=== PATIENT | female | born 1950 | race Caucasian/White ===

== ENCOUNTER 2024-02-05 19:41 | Emergency (ER) | payer MEDICARE, BC, SELFPAY ==
[2024-02-05 19:43] VITALS: BP 171/100
--- NOTE | 2024-02-05 20:27 | ED.GENMED ---
History of Present Illness
General
Chief Complaint: Abdominal Pain
Source: patient and spouse
Exam Limitations: none
Time Seen by Provider: 02/05/24 20:14
Nursing documentation reviewed up to this point in time: agreed with
History of Present Illness
History of Present Illness:
74-year-old female with a past medical history of hypertension, hyperlipidemia who presents to the ER with her for evaluation of abdominal pain. Patient reports onset of symptoms this morning around 10 AM�they started gradually and have
been constant and generally worsening throughout the day. Pain located in the left lower quadrant does not radiate. No clear triggering or relieving factors noted. She denies any associated nausea or vomiting. Denies any diarrhea or
constipation, last bowel movement was today and was normal. Denies any dysuria, hematuria, change in urinary frequency. She denies any fever or chills. She says she has had similar symptoms with diverticulitis in the past.
Review of Systems
Review of Systems
All Other Systems: ROS reviewed and negative except as documented in HPI and ROS
Constitutional: Denies fever or chills
Respiratory: Denies trouble breathing
Cardiac: Denies chest pain
ABD/GI: Reports abdominal pain; Denies nausea, vomiting, diarrhea or constipated
: Denies dysuria, frequency, flank pain or bleeding
Musculoskeletal: Denies neck pain or back pain
Neurological: Denies dizzy or headache
Phy Exam
Physical Exam
Physical Exam:
General: Awake, alert, oriented x3; no acute distress
Head: Normocephalic, atraumatic
Eyes: Conjunctiva normal, sclera intact
Throat: Airway intact, moist mucous membranes
Neck: Trachea midline
Lungs: Clear to auscultation bilaterally, no wheezing, rales, rhonchi
Heart: Regular rate and rhythm, no murmurs, gallops, or rubs
Abd: Soft, non distended, tender to palpation left lower quadrant with no peritoneal signs and no masses appreciated
Back: No CVA tenderness
Neuro: No gross deficits
Extremities: No edema in extremities, warm and well-perfused
Scores
Heart Failure Risk
Heart Failure Risk Score: Not Applicable
Heart Score for Chest Pain Patients
STEMI patient?: Not applicable
Withdrawal Assessment of Alcohol
Withdrawal Assessment Completed?: Not applicable
Course
Orders/Labs/Results
Orders:
Orders
02/05/24 20:17
CT Abd/pelvis W Iv Cont Urgent
Comment:
Reason For Exam: LLQ abd pain
02/05/24 20:28
Complete Blood Count/With Diff Urgent
Comprehensive Metabolic Panel Urgent
02/05/24 20:33
0.9% Sodium Chloride 500 ml [Nss] 500 ml IV BOLUS
02/05/24 21:14
Urinalysis Reflex To Culture Urgent
Date Specimen was Collected: 02/05/24
Time Specimen was Collected: 21:07
Urine Microscopic Reflex Cult Urgent
Abnormal Lab Results
02/05/24 02/05/24
20:28 21:14
WBC 4.4 L 10^3/uL
(4.8-10.8)
RBC 3.28 L 10^6/uL
(4.20-5.40)
Hgb 10.3 L g/dL
(12.0-16.0)
Hct 29.3 L %
(37.0-47.0)
MCH 31.4 H pg
(27.0-31.0)
MPV 10.5 H fL
(7.4-10.4)
Abs Immat Gran (auto) 0.2 H 10^3/uL
(0-0.05)
Immature Gran % 4.1 H %
(0-0.5)
Sodium 131 L mmol/L
(135-145)
Chloride 92 L mmol/L
(98-107)
BUN 27 H mg/dl
(7-17)
Glucose 100 H mg/dl
(70-99)
Leukocyte Esterase Rfl Trace A
(Negative)
02/05/24 20:28
02/05/24 20:28
Vital Signs
Initial and Last Documented VS:
Initial Vital Signs
Temp Pulse Resp BP Pulse Ox
36.6 C 72 18 171/100 96
02/05/24 19:43 02/05/24 19:43 02/05/24 19:43 02/05/24 19:43 02/05/24 19:43
Last Documented Vital Signs
Temp Pulse Resp BP Pulse Ox
36.6 C 65 18 177/101 98
02/05/24 19:43 02/05/24 21:52 02/05/24 19:43 02/05/24 21:52 02/05/24 21:52
MDM/Problems Addressed
Differential Diagnosis Includes:
Diverticulitis, UTI, nephrolithiasis, constipation
MDM/Problems Addressed:
74-year-old female presents for evaluation of left lower quadrant pain worsening throughout the day similar to prior episodes of diverticulitis. Hypertensive but otherwise normal vitals. Physical exam as above. Place an IV check labs including a
CBC and a CMP, urinalysis. Check CT abdomen pelvis. Reassess after the above
Labs reviewed: CBC shows mild anemia�no prior available for comparison. CMP no clinically significant abnormalities. Urinalysis negative for infection. CT pending.
CT abdomen pelvis shows no acute pathology to account for patient's symptoms. Clinical reassessment patient remains well-appearing, blood pressure improving, heart rate normal, afebrile. Clinical suspicion is that this is an early diverticulitis,
will plan to treat empirically with Augmentin. No clear indication for admission to the medical stringer, patient feels comfortable with discharge on oral antibiotic. We did speak about strict return precautions and all questions were answered.
Acute Exacerbation and/or Progression of Chronic Illness:
Acutely hypertensive no signs or symptoms of hypertensive emergency no indication for emergent antihypertensive therapy at present
Acute Exacerbation and/or Progression of Chronic Illness: HTN
*Radiology
Radiology exam reviewed: radiology read reviewed
*Pulse Oximetry
Patient hypoxic: no
*Critical Care Note
Total Time (30-74mins, 75-104mins- exclusive of procedures): Not Applicable
Data Reviewed
Source: patient and spouse
ED Attending Note
-
Portions of this chart may have been created with voice recognition software.� Occasional wrong word or��sound alike� substitutions may have occurred due to the inherent limitations of voice recognition software.
Discharge Plan
Departure
Patient Disposition: Home (Routine Discharge)
Date of Disposition: 02/05/24
Time of Disposition: 22:23
Patient with high blood pressure during this ER visit?: Yes
Discharge Problem:
Diverticulitis, Hypertension
Instructions: Diverticulitis (DC), BLOOD PRESSURE
Prescriptions:
New
amoxicillin-pot clavulanate 875-125 mg tablet
1 tab PO BID Qty: 20 0RF
Referrals:
Jhonny Loco MD [Family Provider] - Call in 1-3 days for appt
Activity Restrictions/Additional Instructions:
Thank you for visiting the Emergency Department at [facility].
1. Please schedule a follow up appointment as directed. Call first thing tomorrow morning to make an appointment.
2. If indicated, please take your medications as instructed and indicated on discharge paperwork.
3. If any of your symptoms do not improve, or persist, or become more severe within 6-12 hours, please return to the emergency department for further care.
4. Please return to the emergency department if you develop a headache, neck pain/stiffness, fever greater than 100.4F, chest pain, shortness of breath, persistent nausea, vomiting, slurred speech, difficulty walking, numbness/tingling, weakness,
signs of infection or any other symptoms that are worrisome to you.
Please call [phone] if you have any questions.
Interventions
Interventions:
*Risk Screen - Suicide Last Done: 02/05/24 19:43
*General Assessment Last Done: 02/05/24 19:43
*Neglect/Abuse Screening Last Done: 02/05/24 19:43
*ED COVID-19 Vaccine History Last Done: 02/05/24 19:43
YV-Dvtnhi-Bebedfehtv Assessment Last Done: 02/05/24 21:52
Discharge Date and Time
Print Language: KISWAHILI
[2024-02-05 20:29] VITALS: BP 165/95; BMI 29.7
[2024-02-05] MEDS: NSS 500 IV (20:34)
[2024-02-05 20:48] LABS: % Basophils 0.7 % (0-2); % Eosinophils 1.4 % (0-6); % Immature Granulocytes 4.1 % (0-0.5); % Lymphocytes 41.7 % (20.5-51.1); % Neutrophils 44.1 % (42.2-75.2); Absolute Eosinophils 0.1 10^3/uL (0-0.7); Absolute Immature Granulocytes 0.2 10^3/uL (0-0.05); Absolute Lymphocytes 1.8 10^3/uL (1.2-3.4); Absolute Monocytes 0.4 10^3/uL (0.1-0.6); Absolute Neutrophils 1.9 10^3/uL (1.4-6.5); Hematocrit 29.3 % (37.0-47.0); Hemoglobin 10.3 g/dL (12.0-16.0); Mean Corp Hgb Conc. 35.2 g/dL (33.0-37.0); Mean Corpuscular Hgb 31.4 pg (27.0-31.0); Mean Corpuscular Volume 89.3 fL (81.0-99.0); Mean Platelet Volume 10.5 fL (7.4-10.4); Nucleated Red Blood Cells % 0 %; Platelet Count 281 10^3/uL (130-400); Red Blood Cell Count 3.28 10^6/uL (4.20-5.40); Red Cell Dist. Width 14.1 % (11.5-14.5); White Blood Cell Count 4.4 10^3/uL (4.8-10.8)
[2024-02-05 20:52] LABS: ALT (SGPT) 30 U/L (0-35); AST (SGOT) 30 U/L (14-36); Albumin 4.3 g/dl (3.5-5.0); Alkaline Phosphatase 91 U/L (38-126); Blood Urea Nitrogen 27 mg/dl (7-17); Calcium 9.8 mg/dl (8.4-10.2); Carbon Dioxide 26 mmol/L (22-30); Chloride 92 mmol/L (98-107); Estimated Creatinine Clearance 59 ml/min; Glucose 100 mg/dl (70-99); Sodium 131 mmol/L (135-145); Total Bilirubin 0.4 mg/dl (0.2-1.3); eGFR > 60.00
[2024-02-05 21:21] LABS: Urine Albumin Negative (Neg - Trace); Urine Bilirubin Negative (Negative); Urine Character Clear (Clear); Urine Color Straw; Urine Glucose Negative (Negative); Urine Ketone Negative (Negative); Urine Leukocyte Trace (Negative); Urine Nitrite Negative (Negative); Urine Occult Blood Negative (Negative); Urine Specific Gravity 1.005 (<1.030); Urine Urobilinogen Negative (Neg - 1+)
[2024-02-05 21:41] LABS: Urine White Cell 0-2 /HPF (0-5)
[2024-02-05 21:52] VITALS: BP 177/101
[2024-02-05] MEDS: AUGMENTIN 875 MG/125 MG 1 TABLET PO (22:36)
[2024-02-05 22:40] VITALS: BP 146/90
== END 2024-02-05 22:43 | disposition home or self-care (01) ==
LOC: EMR 19:41
PROVIDERS: EMERGENCY PHYSICIAN Emergency Medicine; FAMILY PHYSICIAN Family Medicine
DX: K57.32 Diverticulitis of large intestine without perforation or abscess without bleeding (principal); I10 Essential (primary) hypertension; E78.5 Hyperlipidemia, unspecified
CPT/HCPCS: 99285; 96360; 74177; 80053; 81003; 81015; 85025; Q9967

== ENCOUNTER 2024-02-07 09:58 | Inpatient (IN) | payer MEDICARE, BC, SELFPAY ==
[2024-02-07] VITALS (11 sets, daily range): BP systolic 89–122; BP diastolic 58–79; PULSE 85; O2SAT 97
--- NOTE | 2024-02-07 07:30 | ED.GENMED ---
History of Present Illness
General
Chief Complaint: Abdominal Pain
Time Seen by Provider: 02/07/24 07:17
History of Present Illness
History of Present Illness:
Patient is a 74-year-old woman with history of hypertension, hyperlipidemia presenting to the emergency department abdominal pain. Patient was seen here 2 days ago for the same and was diagnosed with possible diverticulitis and started on
Augmentin. She has been taking the antibiotics. She was having a bland diet until last night when she did have chicken couplets. She states that later that night developed some nausea worsening abdominal pain and some chills. No vomiting. No
diarrhea. No blood in her stool. No chest pain shortness of breath. No urinary symptoms.
Phy Exam
Physical Exam
Physical Exam:
GENERAL: in no acute distress
HEENT: normocephalic, extraocular movements intact, dry oral mucosa
NECK: normal inspection
RESPIRATORY: no respiratory distress, clear to auscultation bilaterally
CARDIOVASCULAR: regular rate and rhythm
ABDOMEN/: soft, non-distended, suprapubic abdominal tenderness, no rebound or guarding
EXTREMITIES: non-tender, no edema/swelling
NEUROLOGIC: awake and alert, moves all extremities
SKIN: warm
Course
Orders/Labs/Results
Orders:
Orders
02/07/24 07:28
0.9% Sodium Chloride 1000 ml [Nss] 1,000 ml IV BOLUS
02/07/24 07:29
CT Abd/pelvis W Iv Cont Urgent
Comment:
Reason For Exam: abdominal pain
02/07/24 07:32
Ondansetron Injectable [Zofran] 4 mg IV NOW STA
02/07/24 07:34
Complete Blood Count/With Diff Urgent
Comprehensive Metabolic Panel Urgent
Manual Differential Urgent
02/07/24 09:02
Urinalysis Reflex To Culture Urgent
Date Specimen was Collected: 02/07/24
Time Specimen was Collected: 09:01
02/07/24 09:15
Piperacillin/Tazo 4.5 Gram [Zosyn] 4.5 gram in 100 ml IV NOW
Abnormal Lab Results
02/07/24
07:34
RBC 3.45 L 10^6/uL
(4.20-5.40)
Hgb 10.7 L g/dL
(12.0-16.0)
Hct 31.3 L %
(37.0-47.0)
MPV 10.5 H fL
(7.4-10.4)
Band Neutrophils 4 H %
(0-3)
Lymphocytes (Manual) 12 L %
(20-51)
Monocytes (Manual) 13 H %
(2-9)
BUN 28 H mg/dl
(7-17)
Glucose 112 H mg/dl
(70-99)
02/07/24 07:34
02/07/24 07:34
Vital Signs
Initial and Last Documented VS:
Initial Vital Signs
Temp Pulse Resp BP Pulse Ox
98.3 F 88 16 89/58 99
02/07/24 07:01 02/07/24 07:01 02/07/24 07:01 02/07/24 07:01 02/07/24 07:01
Last Documented Vital Signs
Temp Pulse Resp BP Pulse Ox
98.3 F 88 16 119/78 99
02/07/24 07:01 02/07/24 07:01 02/07/24 07:01 02/07/24 09:01 02/07/24 09:02
MDM/Problems Addressed
Differential Diagnosis Includes:
Patient is a 74-year-old woman with history of hypertension, hyperlipidemia presenting to the emergency department with abdominal pain. Vitals are notable for blood pressure of 98/58 and exam does show dry oral mucosa and suprapubic abdominal
tenderness. Differential consists of UTI versus complication of diverticulitis such as an abscess. Could also be appendicitis though less likely. Will check blood work urine and repeat CT scan. Will give IV fluids as well as Zofran.
*Critical Care Note
Total Time (30-74mins, 75-104mins- exclusive of procedures): Not Applicable
Update Note
Update Note:
On reevaluation her blood pressure has improved after the IV fluids. Blood work is unremarkable. CT scan does show diverticulitis with probable abscess developing. Will give IV Zosyn. Patient will need admission for further evaluation.
Discussed with hospitalist who excepted patient to their service
ED Attending Note
-
Portions of this chart may have been created with voice recognition software.� Occasional wrong word or��sound alike� substitutions may have occurred due to the inherent limitations of voice recognition software.
Discharge Plan
Departure
Patient Disposition: Admit
Date of Disposition: 02/07/24
Time of Disposition: 09:17
Presentation/result/management discussed w/ accepting MD/DO: Hospitalist
Discharge Problem:
Diverticulitis
Prescriptions:
No Action
amoxicillin-pot clavulanate 875-125 mg tablet
1 tab PO BID Qty: 20 0RF
atorvastatin 20 mg Tablet
20 mg PO DAILY
indapamide 2.5 mg Tablet
2.5 mg PO DAILY
famotidine 40 mg Tablet
40 mg PO DAILY
methocarbamol 750 mg Tablet
750 mg PO QID PRN (Reason: muscle spasms)
Referrals:
Jhonny Loco MD [Family Provider] -
Interventions
Interventions:
*Risk Screen - Suicide Last Done: 02/07/24 07:09
*Neglect/Abuse Screening Last Done: 02/07/24 07:09
ED- Fall Risk Assessment Last Done: 02/07/24 07:19
*ED COVID-19 Vaccine History Last Done: 02/07/24 07:01
HL-Iiyuyv-Effnmkuphr Assessment Last Done: 02/07/24 07:19
Discharge Date and Time
Print Language: BULGARIAN
[2024-02-07] MEDS: NSS 1000 IV ×3 (07:35→23:46)
[2024-02-07] MEDS: ZOFRAN 4 MG IV (07:38)
[2024-02-07 07:50] LABS: Hematocrit 31.3 % (37.0-47.0); Hemoglobin 10.7 g/dL (12.0-16.0); Mean Corp Hgb Conc. 34.2 g/dL (33.0-37.0); Mean Corpuscular Volume 90.7 fL (81.0-99.0); Mean Platelet Volume 10.5 fL (7.4-10.4); Platelet Count 268 10^3/uL (130-400); Red Blood Cell Count 3.45 10^6/uL (4.20-5.40); Red Cell Dist. Width 14.5 % (11.5-14.5); White Blood Cell Count 7.3 10^3/uL (4.8-10.8)
[2024-02-07 08:03] LABS: AST (SGOT) 34 U/L (14-36); Blood Urea Nitrogen 28 mg/dl (7-17); Calcium 9.3 mg/dl (8.4-10.2); Carbon Dioxide 27 mmol/L (22-30); Chloride 98 mmol/L (98-107); Glucose 112 mg/dl (70-99); Total Bilirubin 0.8 mg/dl (0.2-1.3); Total Protein 6.7 g/dl (6.3-8.2); eGFR > 60.00
[2024-02-07 08:16] LABS: Absolute Neutrophils -Man Diff 5.4 10^3/uL (1.4-6.5); Band Neutrophils 4 % (0-3); Lymphocytes 12 % (20-51); Metamyelocytes 1 % (-); Monocytes 13 % (2-9); Normal RBC Morphology Yes; Platelets Checked Yes; Segmented Neutrophils 70 % (42-75); Total Cells Counted 100; Vacuolated Segs 2+
[2024-02-07 08:17] LABS: ALT (SGPT) 30 U/L (0-35); Alkaline Phosphatase 84 U/L (38-126); Potassium 4.3 mmol/L (3.5-5.1); Sodium 135 mmol/L (135-145)
[2024-02-07 09:17] LABS: Urine Albumin Negative (Neg - Trace); Urine Bilirubin Negative (Negative); Urine Character Clear (Clear); Urine Color Yellow; Urine Glucose Negative (Negative); Urine Ketone Negative (Negative); Urine Leukocyte Negative (Negative); Urine Nitrite Negative (Negative); Urine Occult Blood Negative (Negative); Urine Urobilinogen Negative (Neg - 1+)
[2024-02-07] MEDS: ZOSYN 100 IV ×3 (10:17→22:05)
[2024-02-07 10:43] LABS: Lactic Acid 1.2 mmol/L (0.7-2.0)
--- NOTE | 2024-02-07 11:58 | CON.GI ---
Consultation
-
Date/Time Consultation Requested: 02/07/24 11.19 pm
Date/Time Consultation Performed: 02/07/24 13.02 pm
Requesting Provider: Paresh العلي MD
Performing Provider: Ashley Dickinson MD
Reason for Consultation: Abdominal Pain
Medical History
Chief Complaint / HPI
Chief Complaint: Abdominal Pain
History of Present Illness:
The patient is a 74 years old female with a PMH of hyperlipidemia, GERD, chronic pain disorder, diverticulitis last flare 3 years ago with last colonoscopy 5 years ago who presented to ER complaining from lower abdominal pain.The patient had
left-lower quadrant abdominal pain on Monday and was diagnosed with possible diverticulitis and discharged on Augmentin. Her pain started to get worsen this morning and she had pain more extended pain on lower abdominal area. She presented to ER
again and her CT abdomen pelvis demonstrated acute sigmoid diverticulitis with probable development of small intramural abscess formation. The patient denied diarrhea, vomiting, bloody/tarry stools. Reports having reflux for a long time and has
been on famotidine 40 mg which is releasing her burning sensation related her acid reflux.
Past Medical History
Past Medical History: GERD, Hypercholesterolemia and Other (chronic pain disorder)
Past Surgical History: Other (tube ligation )
Social History
Tobacco: Former Smoker
Alcohol: Occasional
Drug: None
Personal:
Living: With Family
Family History
Family History: Other (Mother: stroke)
Allergies / Home Medications
Allergy/AdvReac Type Severity Reaction Status Date / Time
No Known Allergies Allergy Verified 02/07/24 07:06
�Medication �Instructions �Recorded
amoxicillin 875 mg-potassium 1 tab PO BID #20 tabs 02/05/24
clavulanate 125 mg tablet
atorvastatin 20 mg tablet 20 mg PO DAILY 02/07/24
calcium carbonate 1,500 mg PO DAILY 02/07/24
famotidine 40 mg tablet 40 mg PO DAILY 02/07/24
indapamide 2.5 mg tablet 2.5 mg PO DAILY 02/07/24
methocarbamol 750 mg tablet 750 mg PO QIDPRN PRN muscle spasms 02/07/24
naproxen sodium 220 mg tablet 220 mg PO BIDPRN PRN mild pain 02/07/24
(Aleve)
therapeutic multivitamin 1 tab PO DAILY 02/07/24
turmeric 400 mg capsule 400 mg PO DAILY 02/07/24
Review of Systems
-
History Source: Patient
All other systems: A 12 pt ROS was Negative except as stated above in HPI
Constitutional: Reports No Symptoms
EENT: Reports No Symptoms
Respiratory: Reports No Symptoms
Cardiac: Reports No Symptoms
Abdomen/GI: Reports Pain
: Reports No Symptoms
Musculoskeletal: Reports No Symptoms
Skin: Reports No Symptoms
Vital Signs
Temp Pulse Resp BP Pulse Ox
98.3 F 91 18 122/76 97
02/07/24 11:15 02/07/24 11:15 02/07/24 11:15 02/07/24 11:15 02/07/24 11:15
Physical Exam
Exam
General: Well Developed and Well Nourished
HEENT: Normocephalic and Anicteric
Respiratory: Clear
Cardiac: S1/S2 and Regular Rhythm
GI: Soft and Tender (mild to moderate tenderness on the lower abdominal area )
Musculoskeletal: No Clubbing, No Cyanosis and No Edema
Skin: Warm
Neuro: Awake, Alert, Oriented and AO x 3
Psych: Calm
Results
WBC 7.3 10^3/uL (4.8-10.8) 02/07/24 07:34
Hgb 10.7 g/dL (12.0-16.0) L 02/07/24 07:34
Hct 31.3 % (37.0-47.0) L 02/07/24 07:34
MCV 90.7 fL (81.0-99.0) 02/07/24 07:34
Plt Count 268 10^3/uL (130-400) 02/07/24 07:34
Sodium 135 mmol/L (135-145) 02/07/24 07:34
Potassium 4.3 mmol/L (3.5-5.1) 02/07/24 07:34
Chloride 98 mmol/L (98-107) 02/07/24 07:34
Carbon Dioxide 27 mmol/L (22-30) 02/07/24 07:34
BUN 28 mg/dl (7-17) H 02/07/24 07:34
Creatinine 0.9 mg/dL (0.6-1.0) 02/07/24 07:34
Calcium 9.3 mg/dl (8.4-10.2) 02/07/24 07:34
Total Bilirubin 0.8 mg/dl (0.2-1.3) 02/07/24 07:34
AST 34 U/L (14-36) 02/07/24 07:34
ALT 30 U/L (0-35) 02/07/24 07:34
Alkaline Phosphatase 84 U/L (38-126) 02/07/24 07:34
Diagnostic Image Results:
ABD/PELVIS CT 02/07/24
IMPRESSION:
1. Acute sigmoid diverticulitis with probable developing small intramural abscess formation. Findings are new from prior.
ABD/PELVIS CT 02/05/24
IMPRESSION:
Contracted gallbladder likely postprandial, food material seen within the stomach.
Limited of the evaluation of intestinal tract without oral contrast without intestinal obstruction, free air or gross focal pericolonic inflammatory changes.
Prior GI Procedures:
EGD: The patient reported having EGD in [facility] 2.5 years ago. Per patient report, findings were not significant
Colonoscopy: The patient reported having EGD in [facility] 5 years ago. Per patient report, findings were not significant but she was told that she had packages(diverticulosis) on her colon.
Assessment / Plan
-
Impression: The patient is a 74 year old female with a history of diverticulosis and a similar episodes of diverticulitis about 3-4 years ago presented to ER 2 times in 3 days with lower abdominal pain. She was diagnosed with a possible
diverticulosis on Monday and was discharged on Augmentin. Following her pain got worsened on this morning and her CT abdomen pelvis demonstrated acute sigmoid diverticulitis with probable development of small intramural abscess formation. She denies
any episodes of melena, hematemesis. She had her last colonoscopy 5 years ago for check up and had EGD 2.5 years ago due Acid Reflux symptoms at [facility]. Per patient report, the finding s were not significant and she was told that she has
diverticulosis at that time. Her last BM was this morning in small pieces with brown color.
Assessment/Plan:
#Acute sigmoid diverticulitis with a possible newly developed intramural abscess
-Continue Zosyn
-Continue IV fluids
-NPO for now
-Colonoscopy at OP setting is recommended
#GERD
-Continue H2 lorri
-Reports her GERD symptoms got some worsen
-EGD at OP setting is recommended
We will follow up the patient
-
-
Thank you for consultation and allowing me to participate in the patient's care. Please call the employment instructional associate GI physician during the after hours with any questions or concerns.
--- NOTE | 2024-02-07 12:08 | HPS.HSE ---
Addendum entered and electronically signed by Juve Tobias MD 02/07/24 13:06:
74 female history of hyperlipidemia, GERD, chronic pain disorder, diverticulitis last flare 3 years ago with last colonoscopy 5 years ago who developed left-sided lower abdominal pain on Monday presented to the ED the following day provided
antibiotics however noted worsening in symptoms and then presented to the ED. Increased bowel movement however not diarrhea-like as of yet. CT abdomen pelvis demonstrated acute sigmoid diverticulitis with probable development of small intramural
abscess formation.
Physical Exam
NAD, resting comfortably in bed
Scleral anicteric
Moist mucous membranes
No JVD
CTA bilateral
Normal S1-S2 no murmurs
Soft nondistended bowel sounds active
-Left lower quadrant tenderness
No peripheral pitting edema
Moves extremities spontaneously
AAOx3
Assessment and Plan
Acute sigmoid diverticulitis
-Suspected intramural abscess
-Continue Zosyn
-N.p.o. IV fluids
-GI consult
-As abdominal pain resolves no further nausea/vomiting or and improvement in bowel movements they can likely proceed with clear liquid diet
GERD
-Continue H2 lorri
HTN
-Continue antihypertensives
HLD
-Continue statin
Original Note:
Family Physician
-
Family Physician: Jhonny Loco
Chief Complaint
-
Dyschezia
History of Present Illness
Nathaly Verduzco, 74-year-old female with history of diverticulitis, has had lower left-sided lower abdominal pain since 02-04-24. Came to the emergency on 02-05-24 and was prescribed amoxicillin-clavulanate for presumed early diverticulitis.
Symptoms progressed and patient came in again on 02-07-24. CT AP results were consistent with 'acute sigmoid diverticulitis with probable developing small intramural abscess formation.' Last flare of diverticulitis was 3 years ago, and last
colonoscopy 5 years ago.
Medical History
Past Medical History
Past Medical History: Reports Other (diverticulitis; hyperlipidemia; GERD; chronic pain disorder)
Past Surgical History: Reports Other (tubal ligation)
Social History
Tobacco: Former Smoker
Alcohol: Occasional
Drug: None
Personal:
Living: With Family
Family History
Family History: Not pertinent
Allergies / Home Medications
Allergies reflects when Allergies were last updated in [facility].
Home Medications with original date entered in [facility]
Allergy/Medication List:
Allergies
Allergy/AdvReac Type Severity Reaction Status Date / Time
No Known Allergies Allergy Verified 02/07/24 07:06
Home Medications
amoxicillin 875 mg-potassium clavulanate 125 mg tablet 1 tab PO BID #20 tabs 02/05/24
atorvastatin 20 mg tablet 20 mg PO DAILY 02/07/24
calcium carbonate 1,500 mg PO DAILY 02/07/24
famotidine 40 mg tablet 40 mg PO DAILY 02/07/24
indapamide 2.5 mg tablet 2.5 mg PO DAILY 02/07/24
methocarbamol 750 mg tablet 750 mg PO QIDPRN PRN muscle spasms 02/07/24
naproxen sodium 220 mg tablet (Aleve) 220 mg PO BIDPRN PRN mild pain 02/07/24
therapeutic multivitamin 1 tab PO DAILY 02/07/24
turmeric 400 mg capsule 400 mg PO DAILY 02/07/24
Review of Systems
-
History Source: Patient
Constitutional: Reports No Symptoms
EENT: Reports No Symptoms
Respiratory: Reports No Symptoms
Cardiac: Reports No Symptoms
Abdomen/GI: Reports Abdominal Pain
: Reports No Symptoms
Musculoskeletal: Reports No Symptoms
Skin: Reports No Symptoms
Neurological: Reports No Symptoms
Endocrine: Reports No Symptoms
Hematologic/Lymphatic: Reports No Symptoms
Psych: Reports No Symptoms
Physical Exam
Vital Signs
Vital Signs
Temp Pulse Resp BP Pulse Ox
98.3 F 91 18 122/76 97
02/07/24 11:15 02/07/24 11:15 02/07/24 11:15 02/07/24 11:15 02/07/24 11:15
Physical Exam
General: No Apparent Distress and Comfortable
HEENT: NormoCephalic, Anicteric, Moist mucous membranes, Atraumatic and No Ptosis
Respiratory: Clear and Non Labored Respirations
Cardiac: S1/S2 and Regular Rhythm
Breast: Deferred by me
GI: Soft, Non Distended and Tender (left-lower quadrant)
Rectal: Deferred by Provider
Genito-urinary: No costovertebral tender
Musculoskeletal: No Clubbing, No Cyanosis and No Edema
Skin: Warm, Dry and IV/Catheter Site
Neuro: Awake, Alert, Oriented and No Motor Deficits
Hematologic/Lymphatic: No Lymphadenopathy
Psych: Calm and Intact Judgment/Insight
Laboratory Results
-
02/07/24 07:34
02/07/24 07:34
Laboratory Results
Lactic Acid 1.2 mmol/L (0.7-2.0) 02/07/24 09:54
Total Bilirubin 0.8 mg/dl (0.2-1.3) 02/07/24 07:34
AST 34 U/L (14-36) 02/07/24 07:34
ALT 30 U/L (0-35) 02/07/24 07:34
Alkaline Phosphatase 84 U/L (38-126) 02/07/24 07:34
Impression/Plan
-
Impression and plan
Acute sigmoid diverticulitis
Suspected intramural abscess
- Continue piperacillin-tazobactam.
- Bowel rest; NPO for now with IV hydration.
- Analgesics and antiemetics as needed.
- If symptoms persist or progress, will re-image and consider colorectal consultation.
- Gastroenterology consultation.
Gastroesophageal reflux disease
- Continue famotidine.
Essential hypertension
- Continue indapamide.
Hyperlipidemia
- Continue atorvastatin.
Chronic anemia
- Of unknown etiology per patient.
- Follow CBC.
Thromboprophylaxis
- Enoxaparin.
Code status
- Full.
[2024-02-07] MEDS: LOVENOX 40 MG SC (17:59)
[2024-02-08] MEDS: ZOSYN 100 IV ×4 (04:15→22:45)
[2024-02-08 06:00] VITALS: BMI 28.1
[2024-02-08 07:23] VITALS: BP 123/72
[2024-02-08 07:48] LABS: Hematocrit 25.2 % (37.0-47.0); Hemoglobin 8.6 g/dL (12.0-16.0); Mean Corp Hgb Conc. 34.1 g/dL (33.0-37.0); Mean Corpuscular Hgb 31.4 pg (27.0-31.0); Mean Platelet Volume 10.8 fL (7.4-10.4); Platelet Count 215 10^3/uL (130-400); Red Blood Cell Count 2.74 10^6/uL (4.20-5.40); Red Cell Dist. Width 14.6 % (11.5-14.5); White Blood Cell Count 3.5 10^3/uL (4.8-10.8)
[2024-02-08] MEDS: NSS 1000 IV ×2 (07:55→14:18)
[2024-02-08] MEDS: LOZOL 2.5 MG PO (07:55)
[2024-02-08] MEDS: PEPCID 40 MG PO (07:56)
[2024-02-08] MEDS: LIPITOR 20 MG PO (07:56)
[2024-02-08 08:07] LABS: Blood Urea Nitrogen 17 mg/dl (7-17); Calcium 8.2 mg/dl (8.4-10.2); Carbon Dioxide 22 mmol/L (22-30); Chloride 105 mmol/L (98-107); Estimated Creatinine Clearance 46 ml/min; Glucose 83 mg/dl (70-99); Potassium 3.8 mmol/L (3.5-5.1); Sodium 137 mmol/L (135-145); eGFR 58.75
--- NOTE | 2024-02-08 08:30 | W.PN.HOSP.TC ---
Addendum entered and electronically signed by Juve Tobias MD 02/08/24 14:30:
Physical Exam
NAD, resting comfortably in bed
Scleral anicteric
Moist mucous membranes
No JVD
CTA bilateral
Normal S1-S2 no murmurs
Soft nondistended bowel sounds active
-Left lower quadrant tenderness
No peripheral pitting edema
Moves extremities spontaneously
AAOx3
Assessment and Plan
Acute sigmoid diverticulitis
-Suspected intramural abscess
-Continue Zosyn
-CLD advance as tolerated
-GI following, will need c-scope in 8weeks
-Outpatient CRSgy follow up possibly benefit from sigmoidectomy as this is recurrent sig divert
GERD
-Continue H2 lorri
HTN
-Continue antihypertensives
HLD
-Continue statin
Original Note:
Today's Communication/Plan
-
* Continue piperacillin-tazobactam.
* Trial of clear liquid.
* Continue IV hydration for now.
* Analgesics and anti-emetics as needed.
Assessment / Plan
Assessment / Plan
Assessment
Nathaly Verduzco, 74-year-old female with history of diverticulitis, has had lower left-sided lower abdominal pain since 02-04-24. Came to the emergency on 02-05-24 and was prescribed amoxicillin-clavulanate for presumed early diverticulitis.
Symptoms progressed and patient came in again on 02-07-24. CT AP results were consistent with 'acute sigmoid diverticulitis with probable developing small intramural abscess formation.' Last flare of diverticulitis was 3 years ago, and last
colonoscopy 5 years ago.
Impression and plan
Acute sigmoid diverticulitis
Suspected intramural abscess
- Continue piperacillin-tazobactam, day 2.
- Trial of clear liquid today; if tolerated, will advance to full.
- Analgesics and antiemetics as needed.
- If symptoms persist or progress, will re-image and consider colorectal consultation.
- Gastroenterology following.
Gastroesophageal reflux disease
- Continue famotidine.
Essential hypertension
- Continue indapamide.
Hyperlipidemia
- Continue atorvastatin.
Chronic anemia
- Of unknown etiology per patient.
- Follow CBC.
Thromboprophylaxis
- Enoxaparin.
Code status
- Full.
Anticipated Discharge: 24 - 48 hours
Subjective/Interval History
-
Date of Service: February 08, 2024
Patient is feeling better and has not required analgesics or antiemetics.
Objective Data
-
Labs:
Laboratory Results
02/08/24
07:11
WBC 3.5 L
Hgb 8.6 L
Hct 25.2 L
Plt Count 215
Sodium 137
Potassium 3.8
Chloride 105
Carbon Dioxide 22
BUN 17
Creatinine 1.0
Glucose 83
Calcium 8.2 L
Vital Signs:
Vital Signs
Temp Pulse Resp BP Pulse Ox
98.5 F 79 17 123/72 96
02/08/24 07:23 02/08/24 07:23 02/08/24 07:23 02/08/24 07:23 02/08/24 07:23
I&O
02/07/24 02/08/24 02/09/24
06:59 06:59 06:59
Intake Total 1320 / 1320
Balance 1320 / 1320
Review of Systems
-
History Source: Patient
Constitutional: Reports No Symptoms
EENT: Reports No Symptoms Reported
Respiratory: Reports No Symptoms
Cardiac: Reports No Symptoms
Abdomen/GI: Reports Pain (tenderness, mild)
Breast: Reports No Symptoms
Genitourinary: Reports No Symptoms
Musculoskeletal: Reports No Symptoms
Skin: Reports No Symptoms
Neuro: Reports No Symptoms
Endocrine: Reports No Symptoms
Hematologic / Lymphatic: Reports No Symptoms
Allergy / Immunology: Reports No Symptoms
Physical Exam
-
General: No Apparent Distress and Comfortable
HEENT: Normocephalic, Atraumatic, Moist Mucous Membranes, Anicteric and No Ptosis
Respiratory: Clear to Auscultation and Non Labored Respirations
Cardiac: Regular Rhythm and S1/S2
Breast: Deferred by me
GI: Soft, Nondistended, Tender (lower abdominal, mild) and No Hepatosplenomegaly
Genito-urinary: No Costovertebral Tender
Musculoskeletal: No Clubbing, No Cyanosis and No Edema
Skin: Warm, Dry and IV Access / Catheter Site
Neuro: Awake, Alert, Oriented and No Motor Deficits
Hematologic / Lymphatic: No Lymphadenopathy
Psych: Calm
--- NOTE | 2024-02-08 08:54 | W.PN.GI.CBS2 ---
Today's Communication / Plan
-
-Trial clear liquid diet
Assessment / Plan
-
Impression: The patient is a 74 year old female with a history of diverticulosis and with a history of similar 2 episodes of diverticulitis about 3-4 years ago presented to ER on 02/06 for worsening lower abdominal pain after recent diagnosis of
diverticulitis on 02/04 where she was treated with Augmentin at OP setting. She was obtained an Abd/Pelvis CT which demonstrated acute sigmoid diverticulitis with probable development of small intramural abscess formation. No indication for
IR-intervention or drainage given intramural location and size. The patient reports improvement with her abdominal pain and tenderness since yesterday after started IV Zosyn. She reported feeling better and it was decided to have a trail of clear
liquid diet today.
Assessment/Plan:
#Acute sigmoid diverticulitis with a possible newly developed intramural abscess
-Continue IV Zosyn
-Continue IV fluids
-Ordered clear liquid diet
-Recommend repeat colonoscopy as an outpatient in 8 weeks
-CRS referral as outpatient can be considered given recurrent episodes
#GERD
-Continue H2 lorri
-Reports her GERD symptoms got some worsen
-EGD at OP setting is recommended
We will follow up the patient
Subjective
Subjective
Date of Service: February 08, 2024
The patient was seen in her bed resting. Reports her pain mostly improved and she kept having passing gasses during the night and this morning. Denies any chills or hives since yesterday morning.
Objective
Data Reviewed
Laboratory Data:
Laboratory Results
02/08/24 07:11
02/08/24 07:11
Laboratory Results
Magnesium 2.0 mg/dl (1.6-2.3) 02/08/24 07:11
Total Bilirubin 0.8 mg/dl (0.2-1.3) 02/07/24 07:34
AST 34 U/L (14-36) 02/07/24 07:34
ALT 30 U/L (0-35) 02/07/24 07:34
Alkaline Phosphatase 84 U/L (38-126) 02/07/24 07:34
Vital Signs and I&O:
Vital Signs
Temp Pulse Resp BP Pulse Ox
98.5 F 79 17 123/72 96
02/08/24 07:23 02/08/24 07:23 02/08/24 07:23 02/08/24 07:23 02/08/24 07:23
I&O
02/07/24 02/08/24 02/09/24
06:59 06:59 06:59
Intake Total 1320 / 1320
Balance 1320 / 1320
Physical Exam
Physical Exam
HEENT: Anicteric and Moist mucous membranes
Cardiology: Normal Sinus Rhythm, S1 and S2
Pulmonary: Clear
GI: Soft, Non Distended and Tender (minimal tenderness on lower abdominal area )
Extremities: No Edema
Neuro: Non Focal
--- NOTE | 2024-02-08 14:04 | CM ---
CM reviewed chart, met with patient bedside. Patient resides with her spouse in a multiple story home, one step to enter (through garage). Patient independent with ADLs/IADLs, no use of DME, no VN or SNF history. Patient confirms PCP Jhonny Loco,
pharmacy [facility] in [place], confirms prescription coverage. Patient denies any insecurities at home. CM will continue to follow for all discharge planning needs.
Plan; home no needs anticipated.
[2024-02-08] MEDS: TORADOL 15 MG IV ×2 (14:18→22:46)
[2024-02-08 15:42] VITALS: BP 126/79
[2024-02-08] MEDS: LOVENOX 40 MG SC (17:03)
--- NOTE | 2024-02-08 20:00 | PTCARENOTE ---
IVFs due for renew/stop date. Pt is on full liquids as of today. DIVYA Grullon notified, IV NS renewed at a lowered rate of 80 mL/hr from 115 mL/hr.
[2024-02-08] MEDS: ZOSYN IV (22:23)
[2024-02-08] MEDS: TORADOL IV (22:24)
[2024-02-08 23:18] VITALS: BP 121/72
[2024-02-09] MEDS: NSS 1000 IV ×2 (02:58→07:20)
[2024-02-09] MEDS: ZOSYN 100 IV ×2 (03:00→09:40)
[2024-02-09 06:56] LABS: Hematocrit 28.5 % (37.0-47.0); Hemoglobin 9.7 g/dL (12.0-16.0); Mean Corpuscular Hgb 31.9 pg (27.0-31.0); Mean Corpuscular Volume 93.8 fL (81.0-99.0); Mean Platelet Volume 10.6 fL (7.4-10.4); Platelet Count 192 10^3/uL (130-400); Red Blood Cell Count 3.04 10^6/uL (4.20-5.40); Red Cell Dist. Width 14.3 % (11.5-14.5); White Blood Cell Count 2.5 10^3/uL (4.8-10.8)
[2024-02-09] MEDS: PEPCID 40 MG PO (07:16)
[2024-02-09] MEDS: LOZOL 2.5 MG PO (07:16)
[2024-02-09] MEDS: LIPITOR 20 MG PO (07:17)
[2024-02-09 07:19] LABS: Blood Urea Nitrogen 10 mg/dl (7-17); Calcium 8.8 mg/dl (8.4-10.2); Carbon Dioxide 24 mmol/L (22-30); Chloride 108 mmol/L (98-107); Estimated Creatinine Clearance 46 ml/min; Glucose 90 mg/dl (70-99); Potassium 4.1 mmol/L (3.5-5.1); Sodium 140 mmol/L (135-145); eGFR 58.75
[2024-02-09 07:37] VITALS: BP 130/80
--- NOTE | 2024-02-09 10:36 | W.PN.HOSP.TC ---
Addendum entered and electronically signed by Juve Tobias MD 02/09/24 12:49:
Acute sigmoid diverticulitis, outpt GI and suregry follow up
-Moving bowel well.
-14days of po atb (cipro/flagyl), before starting cipro will check ekg to assess qtc
More than 30 minutes spent in discharge including
Final examination of the patient
Summarizing hospital stay
Instructions for continuing care to all relevant caregivers
Preparation of discharge records, prescriptions, and referral forms
Total time spent (in minutes): 33mins
Original Note:
Today's Communication/Plan
-
* Continue piperacillin-tazobactam.
* Trial of low residue.
* Analgesics and anti-emetics as needed.
* Likely discharge today.
Assessment / Plan
Assessment / Plan
Assessment
Nathaly Verduzco, 74-year-old female with history of diverticulitis, has had lower left-sided lower abdominal pain since 02-04-24. Came to the emergency on 02-05-24 and was prescribed amoxicillin-clavulanate for presumed early diverticulitis.
Symptoms progressed and patient came in again on 02-07-24. CT AP results were consistent with 'acute sigmoid diverticulitis with probable developing small intramural abscess formation.' Last flare of diverticulitis was 3 years ago, and last
colonoscopy 5 years ago.
Impression and plan
Acute sigmoid diverticulitis
Suspected intramural abscess
- Continue piperacillin-tazobactam, day 3.
- Tolerated liquid diet well; advance to low residue; discharge if tolerated.
- Check ECG for QTc; discharge on metronidazole and ciprofloxacin to complete a total of 14 days of antibiotics.
- Analgesics and antiemetics as needed.
- If symptoms persist or progress, will re-image and consider colorectal consultation.
- Gastroenterology following.
Gastroesophageal reflux disease
- Continue famotidine.
Essential hypertension
- Continue indapamide.
Hyperlipidemia
- Continue atorvastatin.
Chronic anemia
- Of unknown etiology per patient.
- Follow CBC.
Thromboprophylaxis
- Enoxaparin.
Code status
- Full.
Anticipated Discharge: Today
Subjective/Interval History
-
Date of Service: February 09, 2024
Stable overnight. Tolerating solid and liquid foods. Pain improved.
Objective Data
-
Labs:
Laboratory Results
02/09/24
06:32
WBC 2.5 L
Hgb 9.7 L
Hct 28.5 L
Plt Count 192
Sodium 140
Potassium 4.1
Chloride 108 H
Carbon Dioxide 24
BUN 10
Creatinine 1.0
Glucose 90
Calcium 8.8
Vital Signs:
Vital Signs
Temp Pulse Resp BP Pulse Ox
98.2 F 67 19 130/80 96
02/09/24 07:37 02/09/24 07:37 02/09/24 07:37 02/09/24 07:37 02/09/24 07:37
I&O
02/08/24 02/09/24 02/10/24
06:59 06:59 06:59
Intake Total 1320 / 1320 0 1840
Balance 1320 / 1320 1840 1840
Review of Systems
-
History Source: Patient
Constitutional: Reports No Symptoms
EENT: Reports No Symptoms Reported
Respiratory: Reports No Symptoms
Cardiac: Reports No Symptoms
Abdomen/GI: Reports Pain (tenderness, mild)
Breast: Reports No Symptoms
Genitourinary: Reports No Symptoms
Musculoskeletal: Reports No Symptoms
Skin: Reports No Symptoms
Neuro: Reports No Symptoms
Endocrine: Reports No Symptoms
Hematologic / Lymphatic: Reports No Symptoms
Allergy / Immunology: Reports No Symptoms
Physical Exam
-
General: No Apparent Distress and Comfortable
HEENT: Normocephalic, Atraumatic, Moist Mucous Membranes, Anicteric and No Ptosis
Respiratory: Clear to Auscultation and Non Labored Respirations
Cardiac: Regular Rhythm and S1/S2
Breast: Deferred by me
GI: Soft, Nondistended, Tender (lower abdominal, mild) and No Hepatosplenomegaly
Genito-urinary: No Costovertebral Tender
Musculoskeletal: No Clubbing, No Cyanosis and No Edema
Skin: Warm, Dry and IV Access / Catheter Site
Neuro: Awake, Alert, Oriented and No Motor Deficits
Hematologic / Lymphatic: No Lymphadenopathy
Psych: Calm
--- NOTE | 2024-02-09 11:19 | CM ---
CM reviewed chart, patient see bedside. Patient reports she is being discharged today, denies needs from CM. IMM reviewed, signed, placed in chart. CM will continue to follow for all discharge planning needs.
Plan; home with spouse, no needs.
--- NOTE | 2024-02-09 12:57 | W.DCSUMMARY ---
Discharge Summary
Discharge Data
Date of Admission: 02/07/24
Date of Discharge: 02/09/24
-
Pending Results: No
Hospital Course
Primary discharge diagnosis
* Acute sigmoid diverticulitis with intramural abscess
Secondary discharge diagnoses
- History of recurrent diverticulitis
- Diverticulosis
- Gastroesophageal reflux disease
- Essential hypertension
- Hyperlipidemia
- Chronic anemia
Hospital course
Nathaly Verduzco, age 74, came to the emergency on 02-05-24 with abdominal pain and was discharged home on amoxicillin-clavulanate for presumed early diverticulitis. Her symptoms progressed and she developed severe pain associated with defecation,
and came back to the emergency on 02-07-24. Imaging was consistent with acute diverticulitis and intramural abscess, and she was started on broad spectrum antibiotic coverage with total bowel rest. Her symptoms improved on the medications and
intravenous hydration, and her diet was advanced gradually. She moved her bowels a couple of times overnight without pain. On the day of discharge, she was tolerating a low-residue diet without any abdominal or constitutional symptoms. She remained
hemodynamically stable throughout her hospitalization and blood work was unremarkable. She will be discharged to complete a total 14 days of antibiotics. Gastroenterology followed the patient who recommended outpatient colonoscopy in 6-8 weeks.
Patient was referred to colorectal surgery to discuss prophylactic surgical options. Follow-up with primary in less than 1 week.
Discharge Plan
-
Patient Disposition: Home (Routine Discharge)
Discharge Diagnosis/Procedures: Acute sigmoid diverticulitis with intramural abscess
Condition: Good
Diet: Low Fiber and Low Residue
Activity: No restrictions
Driving Restrictions: As prior to admission
Bathing Restrictions: None
Blood Work: CBC and BMP in 1 week
Instructions: Low Fiber Diet, Diverticulitis (DC)
Referrals:
Robb Ortiz MD [Active] - in four to six weeks
Jhonny Loco MD [Family Provider] -
Brendon Vaz DO [Active] - 03/08/24 11:30 am
Prescriptions:
New
ciprofloxacin HCl 500 mg tablet
500 mg PO Q12H 12 Days Qty: 23 0RF
metronidazole 500 mg tablet
500 mg PO Q8H 12 Days Qty: 35 0RF
Visbiome 112.5 billion cell capsule
2 cap PO DAILY 21 Days Qty: 42 0RF
Continued
atorvastatin 20 mg Tablet
20 mg PO DAILY
indapamide 2.5 mg Tablet
2.5 mg PO DAILY
famotidine 40 mg Tablet
40 mg PO DAILY
methocarbamol 750 mg Tablet
750 mg PO QIDPRN PRN (Reason: muscle spasms)
therapeutic multivitamin Tablet
1 tab PO DAILY
calcium carbonate 500 mg calcium (1,250 mg) Tablet
1,500 mg PO DAILY
naproxen sodium [Aleve] 220 mg Tablet
220 mg PO BIDPRN PRN (Reason: mild pain)
turmeric 400 mg Capsule
400 mg PO DAILY
Discontinued
amoxicillin-pot clavulanate 875-125 mg tablet
1 tab PO BID Qty: 20 0RF
Discharge Orders:
Discharge Patient (As Directed); Ordered 02/09/24
Ordered By: Paresh Portillo
Discharge Date and Time
Print Language: ROMANSH
[2024-02-09 13:41] VITALS: BP 128/76
== END 2024-02-09 14:52 | disposition home or self-care (01) | DRG 392 ==
LOC: 4 WEST ACU 09:58
PROVIDERS: Student in an Organized Health Care Education/Training Program; ADMITTING PHYSICIAN Hospitalist; CONSULT PHYSICIAN Student in an Organized Health Care Education/Training Program; EMERGENCY PHYSICIAN Student in an Organized Health Care Education/Training Program; FAMILY PHYSICIAN Family Medicine
DX: K57.20 Diverticulitis of large intestine with perforation and abscess without bleeding (principal); I10 Essential (primary) hypertension; E78.00 Pure hypercholesterolemia, unspecified; K21.9 Gastro-esophageal reflux disease without esophagitis; D64.9 Anemia, unspecified; G89.29 Other chronic pain; Z87.891 Personal history of nicotine dependence; Z82.3 Family history of stroke
CPT/HCPCS: 74177; 80048; 80053; 81003; 81015; 83605; 83735; 85025; 85027; 87040; 93005; 96360; 96361; 96365; 96375; 97161; 97165; 99285; Q9967

== ENCOUNTER 2024-02-17 06:02 | Emergency (ER) | payer MEDICARE, BC, SELFPAY ==
[2024-02-17 06:07] VITALS: BP 115/83
--- NOTE | 2024-02-17 06:25 | ED.GENMED ---
History of Present Illness
<Hattie Sevilla MD, Resident - Last Filed: 02/17/24 09:50>
General
Chief Complaint: Abdominal Pain
Source: patient
Exam Limitations: none
Time Seen by Provider: 02/17/24 06:15
Nursing documentation reviewed up to this point in time: agreed with
History of Present Illness
History of Present Illness:
74-year-old female with past medical history significant for essential hypertension hyperlipidemia, GERD, diverticulitis presents to the hospital for evaluation of recurrent left lower quadrant abdominal pain. Patient states that she has been
taking her antibiotics and feels extremely lousy after taking her morning antibiotics, and over the last 2 days she has been having intermittent LLQ pain, that started at 2/10 in intensity and is associated with loose stools-Maud stool scale 7,
no blood or mucus in the stools, about 3 episodes a day for the last 7 days. Currently she is having fatigue, chills chills and her LLQ pain is 8-10/10 in intensity which prompted her to visit ER. She also states that she is very bloated and has
been passing huge amounts of flatus. Of note patient was admitted to last week 02/07/2024 through 10/09/2023 for acute sigmoid diverticulitis with probable developing small intramural abscess, was treated with Zosyn and was discharged home on
ciprofloxacin and metronidazole with 12-day treatment course of which patient finished only 7 days.She denies having subjective fevers, nausea, emesis, dysphagia, rectal urgency, rectal pain, urinary frequency, hesitancy, chest pain, palpitations,
shortness of breath.
If applicable-neuro sx onset
Onset of symptoms known: No
Time pt last seen normal is known: No
Past History
<Hattie Sevilla MD, Resident - Last Filed: 02/17/24 09:50>
Past History
ED Past Medical History: Other (Diverticulitis, HLD, GERD, chronic pain disorder)
ED Past Surgical History: Other (Tubal ligation)
Patient has exhibited threatening behavior?: No
PSI?: No
Social History
Tobacco: Former smoker
Alcohol: Occasional
Drug: None
Personal:
Living: with family
Family History
Family History: Other (none.)
Review of Systems
<Hattie Sevilla MD, Resident - Last Filed: 02/17/24 09:50>
Review of Systems
Allergies reviewed?: Yes
Other source history: family
Constitutional: Reports fatigue and chills; Denies fever, weight loss or night sweats
EENT: Reports no symptoms
Respiratory: Reports no symptoms
Cardiac: Reports no symptoms
ABD/GI: Reports abdominal pain, diarrhea and other (Bloating and passing flatus.)
: Reports no symptoms
Musculoskeletal: Reports neck pain
Skin: Reports no symptoms
Neurological: Reports no symptoms
Endocrine: Reports no symptoms
Hematologic/Lymphatic: Reports no symptoms
Psychiatric: Reports no symptoms
Phy Exam
<Hattie Sevilla MD, Resident - Last Filed: 02/17/24 09:50>
General Physical Exam
General Presentation: no apparent distress
General Skin: warm
General Habitus: normal
General Mental: alert
General Hydration: appears well hydrated
General Chronic Disability: contractures
Cardiovascular Exam
Cardiovascular Exam: regular rate/rhythm, no edema, no gallop, no murmur and normal peripheral pulses
Heart Sounds: normal
Pulmonary Exam
Pulmonary Exam: lungs clear, no respiratory distress, no rales, no crackles and no rhonchi
Respirations: accessory muscle use
Gastrointestinal Exam
Gastrointestinal Exam: normal bowel sounds, non tender, soft, no organomegaly and non distended
Neurological Exam
Neurological Exam: alert, no motor deficits and normal reflexs
Musculoskeletal Exam
Musculoskeletal Exam: no edema
Course
<Hattie Sevilla MD, Resident - Last Filed: 02/17/24 09:50>
Orders/Labs/Results
Orders:
Orders
02/17/24 06:41
CMP [Comprehensive Metabolic Panel] Urgent
Complete Blood Count/With Diff Urgent
Manual Differential Urgent
Comment: ADDED
02/17/24 06:56
Electrocardiogram (*1) Urgent
Reason for Study: QTc Monitoring
CT Abd/pelvis W Iv Cont Urgent
Comment:
Reason For Exam: Rcurrent LLQ pain
EKG- Treatment ONCE
02/17/24 07:21
0.9% Sodium Chloride 1000 ml [Nss] 1,000 ml IV BOLUS
02/17/24 07:57
Urinalysis Reflex To Culture Urgent
Date Specimen was Collected: 02/17/24
Time Specimen was Collected: 07:50
Urine Microscopic Reflex Cult Urgent
Abnormal Lab Results
02/17/24 02/17/24
06:41 07:57
WBC 2.2 L* 10^3/uL
(4.8-10.8)
RBC 3.18 L 10^6/uL
(4.20-5.40)
Hgb 10.1 L g/dL
(12.0-16.0)
Hct 30.2 L %
(37.0-47.0)
MCH 31.8 H pg
(27.0-31.0)
RDW 14.7 H %
(11.5-14.5)
MPV 11.1 H fL
(7.4-10.4)
AST 38 H U/L
(14-36)
ALT 45 H U/L
(0-35)
Leukocyte Esterase Rfl Trace A
(Negative)
02/17/24 06:41
02/17/24 06:41
Vital Signs
Initial and Last Documented VS:
Initial Vital Signs
Temp Pulse Resp BP Pulse Ox
98.5 F 88 20 115/83 96
02/17/24 06:07 02/17/24 06:07 02/17/24 06:07 02/17/24 06:07 02/17/24 06:07
Last Documented Vital Signs
Temp Pulse Resp BP Pulse Ox
98.5 F 88 20 157/94 99
02/17/24 06:07 02/17/24 06:07 02/17/24 06:07 02/17/24 08:02 02/17/24 08:03
<Randa Elena, - Last Filed: 02/17/24 08:23>
Orders/Labs/Results
Orders:
Orders
02/17/24 06:41
CMP [Comprehensive Metabolic Panel] Urgent
Complete Blood Count/With Diff Urgent
Manual Differential Urgent
Comment: ADDED
02/17/24 06:56
Electrocardiogram (*1) Urgent
Reason for Study: QTc Monitoring
CT Abd/pelvis W Iv Cont Urgent
Comment:
Reason For Exam: Rcurrent LLQ pain
EKG- Treatment ONCE
02/17/24 07:21
0.9% Sodium Chloride 1000 ml [Nss] 1,000 ml IV BOLUS
02/17/24 07:57
Urinalysis Reflex To Culture Urgent
Date Specimen was Collected: 02/17/24
Time Specimen was Collected: 07:50
Urine Microscopic Reflex Cult Urgent
Abnormal Lab Results
02/17/24 02/17/24
06:41 07:57
WBC 2.2 L* 10^3/uL
(4.8-10.8)
RBC 3.18 L 10^6/uL
(4.20-5.40)
Hgb 10.1 L g/dL
(12.0-16.0)
Hct 30.2 L %
(37.0-47.0)
MCH 31.8 H pg
(27.0-31.0)
RDW 14.7 H %
(11.5-14.5)
MPV 11.1 H fL
(7.4-10.4)
AST 38 H U/L
(14-36)
ALT 45 H U/L
(0-35)
Leukocyte Esterase Rfl Trace A
(Negative)
02/17/24 06:41
02/17/24 06:41
Vital Signs
Initial and Last Documented VS:
Initial Vital Signs
Temp Pulse Resp BP Pulse Ox
98.5 F 88 20 115/83 96
02/17/24 06:07 02/17/24 06:07 02/17/24 06:07 02/17/24 06:07 02/17/24 06:07
Last Documented Vital Signs
Temp Pulse Resp BP Pulse Ox
98.5 F 88 20 157/94 99
02/17/24 06:07 02/17/24 06:07 02/17/24 06:07 02/17/24 08:02 02/17/24 08:03
<Hattie Sevilla MD, Resident - Last Filed: 02/17/24 09:50>
MDM/Problems Addressed
Differential Diagnosis Includes:
Acute diverticulitis with worsening abscess, urinary tract infection, diarrhea secondary to antibiotic use, QT interval abnormality secondary to ciprofloxacin use.
MDM/Problems Addressed:
CT abdomen and pelvis with IV contrast ordered
Chronic conditions affecting care: Other (Acute diverticulitis, GERD, hypertension, ex-smoker)
Acute Exacerbation and/or Progression of Chronic Illness:
Acute exacerbation of diverticulitis a week ago
Acute Exacerbation and/or Progression of Chronic Illness: Other
<Hattie Sevilla MD, Resident - Last Filed: 02/17/24 09:50>
*Critical Care Note
Total Time (30-74mins, 75-104mins- exclusive of procedures): Not Applicable
<Hattie Sevilla MD, Resident - Last Filed: 02/17/24 09:50>
Update Note
Update Note:
Labs show leukopenia, which is her baseline, Normocytic anemia, high RDW, and elevated AST and ALT, at 38, 45.
Patient CT abdomen/pelvis with IV contrast showed evidence for mild diverticulitis but no abscess.
Results reviewed with patient, switch patient to Augmentin for 7 days. Discontinue ciprofloxacin and metronidazole.
ED Attending Note
<Hattie Sevilla MD, Resident - Last Filed: 02/17/24 09:50>
-
Portions of this chart may have been created with voice recognition software.� Occasional wrong word or��sound alike� substitutions may have occurred due to the inherent limitations of voice recognition software.
<Randa Elena DO - Last Filed: 02/17/24 08:23>
ED Attending Note
Patient seen and examined by attending physician: Yes
I performed the substantive portion of visit, reviewed & personally made and approve the management plan that is documented in note by myself or TEJINDER.: Yes
I performed a history and physical exam of patient and discussed management with resident, I reviewed resident's note and agree with documented findings and plan of care.: Yes
ED Attending Note:
74-year-old female with history of hyperlipidemia, hypertension, history of diverticulitis presenting for worsening abdominal pain. Patient recently diagnosed with acute diverticulitis in 02/04, started on Augmentin. Patient had interval worsening
of her symptoms, returned in 02/06, with repeat CT imaging that showed possible developing abscess. Patient admitted, treated with IV antibiotics and discharged in 02/08. Notes being discharged on cipro and metronidazole. She has been feeling
generally unwell for the past week, and developed chills and increased cramping since yesterday. She notes loose stools, denies blood in the stool.
Vital signs are normal. On exam, patient is nontoxic, no acute distress. Overall benign exam, minimal reproducible tenderness. At this time, primary working differential diagnosis continues to be diverticulitis, possible interval worsening of
abscess vs antibiotic medication reaction. Plan for repeat laboratory analysis and CT imaging.
08:20 -labs show low WBC, however consistent with prior labs. Otherwise laboratory analysis is unremarkable. CT shows mild diverticulitis without complicating features. Given that patient appears to not be tolerating ciprofloxacin, will switch
patient back to Augmentin. Otherwise feel stable for discharge with outpatient primary care follow-up and continued reassessment. Return precautions discussed and patient verbalized understanding.
Discharge Plan
Departure
Patient Disposition: Home (Routine Discharge)
Date of Disposition: 02/17/24
Time of Disposition: 08:24
Patient with high blood pressure during this ER visit?: Yes
Condition: Good
Discharge Problem:
Diverticulitis, Essential (primary) hypertension
Instructions: Diverticulitis (DC)
Prescriptions:
New
amoxicillin-pot clavulanate 875-125 mg tablet
1 tab PO BID 7 Days Qty: 14 0RF
Rx Instructions:
Diverticulitis
Discontinued
ciprofloxacin HCl 500 mg tablet
500 mg PO Q12H 12 Days Qty: 23 0RF
metronidazole 500 mg tablet
500 mg PO Q8H 12 Days Qty: 35 0RF
No Action
atorvastatin 20 mg Tablet
20 mg PO DAILY
indapamide 2.5 mg Tablet
2.5 mg PO DAILY
famotidine 40 mg Tablet
40 mg PO DAILY
methocarbamol 750 mg Tablet
750 mg PO QIDPRN PRN (Reason: muscle spasms)
therapeutic multivitamin Tablet
1 tab PO DAILY
calcium carbonate 500 mg calcium (1,250 mg) Tablet
1,500 mg PO DAILY
naproxen sodium [Aleve] 220 mg Tablet
220 mg PO BIDPRN PRN (Reason: mild pain)
turmeric 400 mg Capsule
400 mg PO DAILY
Visbiome 112.5 billion cell capsule
2 cap PO DAILY 21 Days Qty: 42 0RF
ketorolac 10 mg tablet
10 mg PO [id number] PRN (Reason: Pain) Qty: 14 0RF
Rx Instructions:
maximum total duration of 5 days
Referrals:
Jhonny Loco MD [Family Provider] -
Activity Restrictions/Additional Instructions:
Avoid straining stools. Stay optimal on your bowel regimen(laxatives-MiraLAX) and diet.
Follow-up with your primary care and GI on outpatient in 7 days.
Interventions
Interventions:
*Risk Screen - Suicide Last Done: 02/17/24 06:07
*General Assessment Last Done: 02/17/24 06:07
*Neglect/Abuse Screening Last Done: 02/17/24 06:07
ED- Fall Risk Assessment Last Done: 02/17/24 06:07
*ED COVID-19 Vaccine History Last Done: 02/17/24 06:07
LX-Vtkdxr-Ubffdjeflm Assessment Last Done: 02/17/24 09:28
Discharge Date and Time
Print Language: OMANI
[2024-02-17 06:57] LABS: Hematocrit 30.2 % (37.0-47.0); Hemoglobin 10.1 g/dL (12.0-16.0); Mean Corp Hgb Conc. 33.4 g/dL (33.0-37.0); Mean Corpuscular Hgb 31.8 pg (27.0-31.0); Mean Platelet Volume 11.1 fL (7.4-10.4); Platelet Count 210 10^3/uL (130-400); Red Blood Cell Count 3.18 10^6/uL (4.20-5.40); Red Cell Dist. Width 14.7 % (11.5-14.5); White Blood Cell Count 2.2 10^3/uL (4.8-10.8)
[2024-02-17 07:13] LABS: ALT (SGPT) 45 U/L (0-35); AST (SGOT) 38 U/L (14-36); Albumin 3.8 g/dl (3.5-5.0); Alkaline Phosphatase 81 U/L (38-126); Blood Urea Nitrogen 16 mg/dl (7-17); Calcium 9.4 mg/dl (8.4-10.2); Carbon Dioxide 24 mmol/L (22-30); Chloride 102 mmol/L (98-107); Glucose 99 mg/dl (70-99); Potassium 4.2 mmol/L (3.5-5.1); Sodium 137 mmol/L (135-145); Total Bilirubin 0.3 mg/dl (0.2-1.3); Total Protein 6.4 g/dl (6.3-8.2); eGFR > 60.00
[2024-02-17] MEDS: NSS 1000 IV (07:55)
[2024-02-17 08:02] VITALS: BP 157/94
[2024-02-17 08:41] LABS: Urine Albumin Negative (Neg - Trace); Urine Bilirubin Negative (Negative); Urine Character Clear (Clear); Urine Color Yellow; Urine Glucose Negative (Negative); Urine Ketone Negative (Negative); Urine Leukocyte Trace (Negative); Urine Nitrite Negative (Negative); Urine Occult Blood Negative (Negative); Urine Urobilinogen Negative (Neg - 1+)
[2024-02-17 08:55] LABS: Urine Red Blood Cell 0-2 /HPF (0-2)
[2024-02-17 11:53] LABS: Absolute Neutrophils -Man Diff 0.9 10^3/uL (1.4-6.5); Atypical Lymphocytes 1 %; Band Neutrophils 3 % (0-3); Eosinophils 1 % (0-6); Segmented Neutrophils 40 % (42-75)
[2024-02-17 11:55] LABS: Lymphocytes 33 % (20-51); Monocytes 20 % (2-9); Normal RBC Morphology Yes; Platelets Checked YES
[2024-02-17 12:10] LABS: Total Cells Counted 100
== END 2024-02-17 10:00 | disposition home or self-care (01) ==
LOC: EMR 06:02
PROVIDERS: Student in an Organized Health Care Education/Training Program; EMERGENCY PHYSICIAN Student in an Organized Health Care Education/Training Program; FAMILY PHYSICIAN Family Medicine
DX: K57.32 Diverticulitis of large intestine without perforation or abscess without bleeding (principal); E78.5 Hyperlipidemia, unspecified; I10 Essential (primary) hypertension; K21.9 Gastro-esophageal reflux disease without esophagitis; Z87.891 Personal history of nicotine dependence; D64.9 Anemia, unspecified
CPT/HCPCS: 96360; 99284; 74177; 80053; 81003; 81015; 85025; Q9967

== ENCOUNTER → 2024-03-15 06:33 | Outpatient (REF) | payer MEDICARE, BC, SELFPAY | LOC: MRI 3T 06:33 | PROVIDERS: ATTENDING PHYSICIAN Family Medicine | DX: M54.2 Cervicalgia (principal) | CPT/HCPCS: 72141 ==

== ENCOUNTER 2024-04-10 06:22 | Inpatient (IN) | payer OTHER, SELFPAY ==
[2024-04-08 11:38] LABS: INR 0.98; PT 13.3 Sec (11.4-14.6)
[2024-04-08 11:39] LABS: APTT 25.5 Sec (23.4-35.0)
[2024-04-08 11:44] LABS: Hematocrit 32.5 % (37.0-47.0); Hemoglobin 10.7 g/dL (12.0-16.0); Mean Corp Hgb Conc. 32.9 g/dL (33.0-37.0); Mean Corpuscular Hgb 32.2 pg (27.0-31.0); Mean Corpuscular Volume 97.9 fL (81.0-99.0); Mean Platelet Volume 11.6 fL (7.4-10.4); Platelet Count 198 10^3/uL (130-400); Red Blood Cell Count 3.32 10^6/uL (4.20-5.40); White Blood Cell Count 1.7 10^3/uL (4.8-10.8)
[2024-04-08 12:01] LABS: ALT (SGPT) 25 U/L (0-35); AST (SGOT) 34 U/L (14-36); Albumin 4.1 g/dl (3.5-5.0); Alkaline Phosphatase 86 U/L (38-126); Blood Urea Nitrogen 21 mg/dl (7-17); Calcium 8.6 mg/dl (8.4-10.2); Carbon Dioxide 25 mmol/L (22-30); Chloride 102 mmol/L (98-107); Glucose 83 mg/dl (70-99); Potassium 4.2 mmol/L (3.5-5.1); Sodium 137 mmol/L (135-145); Total Bilirubin 0.5 mg/dl (0.2-1.3); Total Protein 6.9 g/dl (6.3-8.2); eGFR > 60.00
--- NOTE | 2024-04-08 12:14 | PTCARENOTE ---
Kristen in Dr. Ortiz's office made aware of WBC 1.7.
[2024-04-08 12:21] LABS: Glycohemoglobin (HgbA1c) 5.4 % (4.0-5.6)
[2024-04-08 13:32] VITALS: BMI 26.6
[2024-04-10] VITALS (14 sets, daily range): BP systolic 117–151; BP diastolic 63–88; BMI 26.6
[2024-04-10] MEDS: ENTEREG 12 MG PO (07:03)
[2024-04-10] MEDS: HEPARIN 5000 UNITS SC (07:03)
[2024-04-10] MEDS: TYLENOL 1000 MG PO (07:03)
[2024-04-10] MEDS: NORMOSOL-R/PLASMALYTE-A 1000 IV ×2 (07:04→18:11)
[2024-04-10] MEDS: GRANIX 300 MCG SC (07:13)
--- NOTE | 2024-04-10 11:56 | W.IMMPOSTOP ---
Surgical Immed Post Op Note
-
Primary Surgeon: Denys Ortiz MD
Lawn Caretaker: ARMAND Ernandez
Pre-op Diagnosis: Recurrent sigmoid diverticulitis
Post-op Diagnosis: Same
Procedure Performed: Robotic sigmoid colectomy with intracorporeal anastomosis
Anesthesia Type: GET
Specimen / Cultures: Sigmoid colon (suture is proximal)
Estimated Blood Loss: 25cc
Complications: None
Operative Findings: Acute and chronic sigmoid diverticulitis
28mm EEA
Normal leak test
Left message on her 's voicemail.
[2024-04-10] MEDS: TORADOL 15 MG IV ×3 (13:20→23:16)
[2024-04-10] MEDS: TYLENOL 650 MG PO ×4 (13:24→23:16)
--- NOTE | 2024-04-10 17:29 | PTCARENOTE ---
Report called to [facility]. Pt comfortable with @ bedside. belongings with pt. Pt rolled, repositioned, skin CDI. Pt tolerating clear liquids. Denies pain or discomfort.
--- NOTE | 2024-04-10 18:15 | PTCARENOTE ---
Patient was transferred from [facility] to [facility] via bed. Pt accompanied by , IVF running at 100ml/hr. VSS. Admission and assessment completed by this RN. Pt oriented to room, call hayden within reach.
[2024-04-10] MEDS: TUMS CHEWABLE TABLET 200 MG PO (21:31)
[2024-04-11] MEDS: NORMOSOL-R/PLASMALYTE-A 1000 IV (03:33)
[2024-04-11] MEDS: TORADOL 15 MG IV ×2 (05:21→12:25)
[2024-04-11] MEDS: TYLENOL PO (05:22)
[2024-04-11 06:00] VITALS: BMI 26.4
[2024-04-11 06:29] LABS: Hematocrit 28.1 % (37.0-47.0); Hemoglobin 9.6 g/dL (12.0-16.0); Mean Corp Hgb Conc. 34.2 g/dL (33.0-37.0); Mean Corpuscular Hgb 32.3 pg (27.0-31.0); Mean Corpuscular Volume 94.6 fL (81.0-99.0); Mean Platelet Volume 11.6 fL (7.4-10.4); Platelet Count 199 10^3/uL (130-400); Red Blood Cell Count 2.97 10^6/uL (4.20-5.40); Red Cell Dist. Width 15.2 % (11.5-14.5); White Blood Cell Count 43.3 10^3/uL (4.8-10.8)
[2024-04-11 06:39] LABS: Blood Urea Nitrogen 11 mg/dl (7-17); Calcium 8.2 mg/dl (8.4-10.2); Carbon Dioxide 23 mmol/L (22-30); Chloride 103 mmol/L (98-107); Estimated Creatinine Clearance 52 ml/min; Glucose 89 mg/dl (70-99); Potassium 4.2 mmol/L (3.5-5.1); Sodium 136 mmol/L (135-145); eGFR > 60.00
--- NOTE | 2024-04-11 07:10 | PTCARENOTE ---
Dr. Ortiz made aware of critical WBC value
[2024-04-11 07:42] VITALS: BP 166/94
[2024-04-11 08:23] LABS: Absolute Neutrophils -Man Diff 41.1 10^3/uL (1.4-6.5); Band Neutrophils 18 % (0-3); Lymphocytes 2 % (20-51); Metamyelocytes 1 % (-); Monocytes 2 % (2-9); Segmented Neutrophils 77 % (42-75)
[2024-04-11 08:24] LABS: Anisocytosis Slight; Hypochromasia 1+; Normal RBC Morphology No; Ovalocytes FEW; Platelets Checked Yes; Total Cells Counted 100
[2024-04-11] MEDS: PEPCID 40 MG PO (09:26)
[2024-04-11] MEDS: ENTEREG 12 MG PO ×2 (09:26→19:58)
[2024-04-11] MEDS: TYLENOL 650 MG PO ×4 (09:26→19:58)
[2024-04-11] MEDS: THERAGRAN 1 TABLET PO (09:27)
--- NOTE | 2024-04-11 09:34 | W.PN.CRS1 ---
Today's Communication / Plan
-
advance to fulls, low residue for dinner if tolerates
d/c velazquez
repeat labs at noon
Assessment/Plan
-
POD#1 Robotic sigmoid colectomy with intracorporeal anastomosis
-Vitals normal
-WBC 43.4 (had granix prior to surgery). Hgb 9.6 from 10.7. Repeat labs at noon.
-TEDS/SCDS in place for DVT prophylaxis. Lovenox if hgb does not decrease further.
-OOB as tolerated
-Advance diet to full liquids. Advance to low residue for dinner if tolerates.
-D/C velazquez
-Discontinue IVFS
-OR pathology pending
-Pain medication: Tylenol/Toradol standing, Dilaudid PRN.
Subjective Data
Procedure
04/10/2024- Robotic sigmoid colectomy with intracorporeal anastomosis
Subjective Data
Date of Service: April 11, 2024
Patient states she has no nausea or vomiting. She is not in that much pain. She has not had any flatus or bowel movements yet. She has no complaints.
Objective Data
-
Vital Signs
Temp Pulse Resp BP Pulse Ox
98.8 F 82 16 166/94 97
04/11/24 07:42 04/11/24 07:42 04/11/24 07:42 04/11/24 07:42 04/11/24 07:42
Intake & Output
04/10/24 04/11/24 04/12/24
06:59 06:59 06:59
Intake Total 2710 / 2710
Output Total 2099
Balance 610 / 610
Intake:
Oral fluids 1110 / 1110
IV fluids (Total) 1600 / 1600
normosol 400 / 400
Output:
Urine, Velazquez 2099
Lab Results
04/11/24 05:33
Physical Exam
-
General: No Acute Distress and AOx3
Abdomen: Soft, Non Distended and Non Tender
Skin: Warm and Dry
Wound: Skin Erythema (over all incisions, more prominent over the lower incision)
Incision: Clear, Dry, Intact
[2024-04-11] MEDS: NORMOSOL-R/PLASMALYTE-A IV ×2 (09:45→17:26)
--- NOTE | 2024-04-11 10:32 | PTOTSP ---
Pt is able to get OOB and ambulate without an assistive device independently. Educated pt on log roll technique for bed mobility to decrease abdominal pain/stress with movement. She does not anticipate any PT needs at in. PT will sign off.
--- NOTE | 2024-04-11 10:39 | CM ---
Patient seen at bedside. Patient walking around and indicated that she is feeling much better. Patient plan is home with no needs. Patient s/p surgery yesterday and lives in a 2 story home with her . Patient was independent prior to admission
and has no DME or VN needs previously. Patient PCP is Dr. Loco and she uses [facility] in [place]. Patient does not feel that she will need discharge supports and is eager to go home. CM provided IMM for patient to review and will consider
discharge planning needs.
Plan; home with no needs anticiapted.
[2024-04-11 12:47] LABS: Hematocrit 25.1 % (37.0-47.0); Hemoglobin 8.4 g/dL (12.0-16.0); Mean Corp Hgb Conc. 33.5 g/dL (33.0-37.0); Mean Corpuscular Hgb 32.2 pg (27.0-31.0); Mean Corpuscular Volume 96.2 fL (81.0-99.0); Mean Platelet Volume 11.5 fL (7.4-10.4); Platelet Count 190 10^3/uL (130-400); Red Blood Cell Count 2.61 10^6/uL (4.20-5.40); Red Cell Dist. Width 15.8 % (11.5-14.5); White Blood Cell Count 25.4 10^3/uL (4.8-10.8)
--- NOTE | 2024-04-11 13:44 | PTCARENOTE ---
Pt informed this RN of red, loose bowel movement. RN assessed BM. MD made aware.
[2024-04-11 14:03] LABS: % Basophils 0.2 % (0-2); % Immature Granulocytes 5.1 % (0-0.5); % Lymphocytes 5.9 % (20.5-51.1); % Monocytes 3.5 % (1.7-9.3); % Neutrophils 85.3 % (42.2-75.2); Absolute Immature Granulocytes 1.3 10^3/uL (0-0.05); Absolute Lymphocytes 1.5 10^3/uL (1.2-3.4); Absolute Monocytes 0.9 10^3/uL (0.1-0.6); Absolute Neutrophils 21.6 10^3/uL (1.4-6.5); Nucleated Red Blood Cells % 0 %
[2024-04-11 14:57] VITALS: BP 111/70
[2024-04-11 18:05] LABS: % Basophils 0.2 % (0-2); % Eosinophils 0.1 % (0-6); % Immature Granulocytes 2.5 % (0-0.5); % Lymphocytes 9.7 % (20.5-51.1); % Neutrophils 82.5 % (42.2-75.2); Absolute Immature Granulocytes 0.5 10^3/uL (0-0.05); Absolute Lymphocytes 1.8 10^3/uL (1.2-3.4); Absolute Monocytes 0.9 10^3/uL (0.1-0.6); Absolute Neutrophils 15.2 10^3/uL (1.4-6.5); Hematocrit 24.5 % (37.0-47.0); Hemoglobin 8.3 g/dL (12.0-16.0); Mean Corp Hgb Conc. 33.9 g/dL (33.0-37.0); Mean Corpuscular Hgb 32.5 pg (27.0-31.0); Mean Corpuscular Volume 96.1 fL (81.0-99.0); Mean Platelet Volume 11.5 fL (7.4-10.4); Nucleated Red Blood Cells % 0 %; Platelet Count 190 10^3/uL (130-400); Red Blood Cell Count 2.55 10^6/uL (4.20-5.40); Red Cell Dist. Width 15.7 % (11.5-14.5); White Blood Cell Count 18.4 10^3/uL (4.8-10.8)
[2024-04-11] MEDS: DILAUDID 0.5 MG IV (19:59)
[2024-04-11 23:36] VITALS: BP 132/67
[2024-04-12] MEDS: TYLENOL PO ×2 (00:49→04:04)
[2024-04-12 05:47] VITALS: BMI 26.4
[2024-04-12 06:41] LABS: % Basophils 0.2 % (0-2); % Eosinophils 0.2 % (0-6); % Immature Granulocytes 2.2 % (0-0.5); % Lymphocytes 15.5 % (20.5-51.1); % Monocytes 7.5 % (1.7-9.3); % Neutrophils 74.4 % (42.2-75.2); Absolute Immature Granulocytes 0.2 10^3/uL (0-0.05); Absolute Lymphocytes 1.3 10^3/uL (1.2-3.4); Absolute Monocytes 0.7 10^3/uL (0.1-0.6); Absolute Neutrophils 6.4 10^3/uL (1.4-6.5); Hematocrit 24.7 % (37.0-47.0); Hemoglobin 8.4 g/dL (12.0-16.0); Mean Corpuscular Hgb 32.9 pg (27.0-31.0); Mean Corpuscular Volume 96.9 fL (81.0-99.0); Mean Platelet Volume 11.6 fL (7.4-10.4); Nucleated Red Blood Cells % 0 %; Platelet Count 177 10^3/uL (130-400); Red Blood Cell Count 2.55 10^6/uL (4.20-5.40); Red Cell Dist. Width 16.2 % (11.5-14.5); White Blood Cell Count 8.7 10^3/uL (4.8-10.8)
[2024-04-12 07:03] LABS: Blood Urea Nitrogen 15 mg/dl (7-17); Calcium 7.9 mg/dl (8.4-10.2); Carbon Dioxide 27 mmol/L (22-30); Chloride 106 mmol/L (98-107); Estimated Creatinine Clearance 47 ml/min; Glucose 86 mg/dl (70-99); Potassium 4.2 mmol/L (3.5-5.1); Sodium 138 mmol/L (135-145); eGFR > 60.00
[2024-04-12 07:18] VITALS: BP 141/81
[2024-04-12] MEDS: TYLENOL 650 MG PO ×2 (08:34→12:15)
[2024-04-12] MEDS: PEPCID 20 MG PO (08:34)
[2024-04-12] MEDS: THERAGRAN 1 TABLET PO (08:34)
[2024-04-12] MEDS: ENTEREG PO ×3 (08:34→08:44)
--- NOTE | 2024-04-12 10:03 | W.PN.CRS1 ---
Today's Communication / Plan
-
discharge
Assessment/Plan
-
POD#2 Robotic sigmoid colectomy with intracorporeal anastomosis
-Vitals normal
-WBC 8.7. Hgb 8.4, this is anemia likely due to dilutional mixed with post op losses
-TEDS/SCDS in place for DVT prophylaxis.
-OOB as tolerated
-Continue low residue diet.
-Voiding post velazquez removal.
-OR pathology pending
-Pain medication: Tylenol/Toradol standing, Dilaudid PRN.
-Okay for discharge today. All discharge instructions discussed with patient including medications, activity levels, and follow up. All questions answered.
Subjective Data
Procedure
04/10/2024- Robotic sigmoid colectomy with intracorporeal anastomosis
Subjective Data
Date of Service: April 12, 2024
Patient states she feels well today. She has no nausea or vomiting. Her pain is controlled. She has flatus and bowel movements.
Objective Data
-
Vital Signs
Temp Pulse Resp BP Pulse Ox
97.6 F 68 17 141/81 97
04/12/24 07:18 04/12/24 07:18 04/12/24 07:18 04/12/24 07:18 04/12/24 07:18
Intake & Output
04/11/24 04/12/24 04/13/24
06:59 06:59 06:59
Intake Total 2710 / 2710 1395 / 1395
Output Total 2099 / 2099 400 / 400
Balance 610 / 610 995 / 995
Intake:
Oral fluids 1110 / 1110 1320 / 1320
IV fluids (Total) 1600 / 1600 75 / 75
normosol 400 / 400
Output:
Urine, Velazquez 2099 / 2099 400 / 400
Other:
Number of approximated MODERATE 1
amounts of urine
Number of approximated LARGE 2
amounts of urine
Lab Results
04/12/24 05:39
04/12/24 05:40
Physical Exam
-
General: No Acute Distress and AOx3
Abdomen: Soft, Non Distended and Non Tender
Skin: Warm and Dry
Incision: Clear, Dry, Intact and Other (ecchymosis over incisions)
--- NOTE | 2024-04-12 10:11 | CM ---
Patient for discharge home today. Patient states her will provide transportation home and IMM completed. Signed form placed on chart. CM will continue to follow for discharge planning needs.
Plan; home with no needs anticipated.
--- NOTE | 2024-04-12 11:12 | W.DS.TRANS ---
DC Summary - Inventory Control Specialist
-
Discharge Instructions:
Sleep Apnea Risk Low
Discharge Diagnosis/Procedures Robotic sigmoid colectomy with intracorporeal
anastomosis
Diet Low Residue
Activity No strenuous activity
Additional Activity No lifting over 10lbs (gallon of milk)
Driving Restrictions No driving for 1 week
Bathing Restrictions OK to Shower
Wound Care Allow glue to naturally fall off. Do not pick at
incisions.
Instructions: Low-fiber diet
Stand-Alone Forms:
Changes to Home Medications: No
Discharge Medications:
DC Medications w/original date entered in [facility]
atorvastatin 20 mg tablet 20 mg PO DAILY High Cholesterol 02/07/24
famotidine 40 mg tablet 40 mg PO DAILY Gastrointestinal Issue 02/07/24
calcium citrate 1,500 mg PO DAILY Supplement 04/11/24
xwmbhrjykpvy-ecxzdxhh-jvxnuc tablet (Multivitamin 50 Plus tablet) 1 tab PO DAILY Supplement 04/11/24
Home Medication Changes
Pending Results: Yes
Additional Pending Results:
OR pathology
[2024-04-12 12:00] VITALS: BP 135/75
== END 2024-04-12 14:46 | disposition home or self-care (01) | DRG 330 ==
LOC: 3 WEST ACU 06:22
PROVIDERS: Physician Assistant; Surgery; ADMITTING PHYSICIAN Surgery; FAMILY PHYSICIAN Family Medicine
PROC: 8E0W4CZ Robotic Assisted Procedure of Trunk Region, Percutaneous Endoscopic Approach (ICD-10-PCS; 2024-04-10)
PROC: 0DTN4ZZ Resection of Sigmoid Colon, Percutaneous Endoscopic Approach (ICD-10-PCS; 2024-04-10)
DX: K57.32 Diverticulitis of large intestine without perforation or abscess without bleeding (principal); L76.32 Postprocedural hematoma of skin and subcutaneous tissue following other procedure; K66.0 Peritoneal adhesions (postprocedural) (postinfection); D46.9 Myelodysplastic syndrome, unspecified
CPT/HCPCS: 88307; 36415; 80048; 80053; 83036; 85025; 85027; 85610; 85730; 86850; 86900; 86901; 93005; 97161; 97530; J1335; J1447